=== PATIENT | female | born 1965 | race Caucasian/White ===

== ENCOUNTER → 2017-03-10 | Outpatient (CLI) | payer OTHER ==
[~2017-03-10] MED LIST: CHANTIX0.5 MG PO; FLEXERIL10 MG PO; ULTRAM 50 MG TA50 MG PO; ZANAFLEX4 MG PO
[2017-03-10 19:57] LABS: FREE THYROXIN INDEX 8.5 ug/dl (5.93-13.13)
== END ==
LOC: LAB 16:49
PROVIDERS: Nurse Practitioner Obstetrics & Gynecology
DX: Z01.419 Encounter for gynecological examination (general) (routine) without abnormal findings (principal)